=== PATIENT | male | born 1930 | race Caucasian/White ===

== ENCOUNTER 2017-10-21 12:46 | Emergency (ER) | payer OTHER ==
[~2017-10-21] VITALS: Ht 167.6 cm; Wt 81.6 kg
[~2017-10-21 12:46] MED LIST: ADVAIR 5001 DISK W/1; ALTACE2.5 MG; ANAPROX275 MG; ASA81 MG; ASPIR 8181 MG; CLARITIN10 MG; COZAAR25 MG; DILANTIN100 MG; FLONASE16 GM; LASIX20 MG; LEVOTHYROXINE50 MCG; LIPIODOL10 ML; MIRAPEX0.25 MG; OXYBUTYNIN CHLO15 MG; PLAVIX75 MG; SPIRIVA; SURFAK240 M1; TAMS0.4C; TOPROL XL25 MG; TRAZODONE HCL100 MG; VISTARIL25 MG; ZOCOR20 MG; ZOLOFT50 MG; ZYRTEC10 M3
== END 2017-10-21 16:35 | disposition home or self-care (01) ==
LOC: ER 12:46
DX: R42 Dizziness and giddiness (principal); N39.0 Urinary tract infection, site not specified

== ENCOUNTER → 2017-11-19 | Emergency (ER) | payer OTHER ==
[~2017-11-19] VITALS: Ht 175.3 cm; Wt 74.8 kg
== END | disposition home or self-care (01) ==
LOC: ER 08:48
DX: K56.41 Fecal impaction (principal)

== ENCOUNTER → 2017-12-09 | Emergency (ER) | payer OTHER ==
[~2017-12-09] VITALS: Ht 177.8 cm; Wt 72.1 kg
== END | disposition home or self-care (01) ==
LOC: ER 11:08
DX: K59.09 Other constipation (principal)

== ENCOUNTER 2017-12-13 09:19 | Emergency (ER) | payer OTHER ==
[~2017-12-13] VITALS: Ht 177.8 cm; Wt 70.8 kg
== END 2017-12-13 13:51 | disposition home or self-care (01) ==
LOC: ER 09:19
DX: S01.81XA Laceration without foreign body of other part of head, initial encounter (principal); S50.811A Abrasion of right forearm, initial encounter; S60.052A Contusion of left little finger without damage to nail, initial encounter; W18.39XA Other fall on same level, initial encounter; Y93.89 Activity, other specified; Y92.89 Other specified places as the place of occurrence of the external cause; Y99.8 Other external cause status

== ENCOUNTER 2017-12-16 11:41 | Emergency (ER) | payer OTHER ==
[~2017-12-16] VITALS: Ht 175.3 cm; Wt 71.2 kg
== END 2017-12-16 14:34 | disposition home or self-care (01) ==
LOC: ER 11:41
DX: R51 Headache (principal); S00.03XD Contusion of scalp, subsequent encounter; W18.09XD Striking against other object with subsequent fall, subsequent encounter

== ENCOUNTER 2018-05-06 22:49 | Emergency (ER) | payer OTHER ==
[~2018-05-06] VITALS: Ht 165.1 cm; Wt 56.7 kg
[2018-05-07] MEDS ORDERED: APETIGEN-PLUS1 EACH PO (05:25)
== END 2018-05-07 06:49 | disposition home or self-care (01) ==
LOC: ER 22:49
DX: F03.90 Unspecified dementia, unspecified severity, without behavioral disturbance, psychotic disturbance, mood disturbance, and anxiety (principal); R41.82 Altered mental status, unspecified; R41.0 Disorientation, unspecified

== ENCOUNTER 2018-06-02 23:32 | Inpatient (IN) | payer OTHER ==
[~2018-06-02] VITALS: Ht 170.2 cm; Wt 72.6 kg
[~2018-06-02 23:32] MED LIST changes: +APETIGEN-PLUS1 EACH PO
[2018-06-02] MEDS ORDERED: ATORVASTATIN CA10 MG (23:41)
[2018-06-02] MEDS ORDERED: MONTELUKAST SOD10 MG (23:41)
[2018-06-02] MEDS ORDERED: OMEPRAZOLE20 MG (23:41)
[2018-06-02] MEDS ORDERED: HYDROXYZINE HCL25 MG (23:42)
[2018-06-02] MEDS ORDERED: TRAZODONE HCL100 MG (23:42)
[2018-06-07] MEDS ORDERED: LEVAQUIN750 MG PO (07:40)
== END 2018-06-07 11:04 | disposition home health service (06) | DRG 193 ==
LOC: ER 23:32 → SEC-K 06-03 08:01 → MEDI 06-03 08:01 → SEC-K 06-03 16:43 → MEDI 06-03 17:17
PROC: 3E0F7GC Introduction of Other Therapeutic Substance into Respiratory Tract, Via Natural or Artificial Opening (ICD-10-PCS; principal; 2018-06-03)
PROC: BT43ZZZ Ultrasonography of Bilateral Kidneys (ICD-10-PCS; 2018-06-03)
PROC: BB24ZZZ Computerized Tomography (CT Scan) of Bilateral Lungs (ICD-10-PCS; 2018-06-04)
DX: J18.9 Pneumonia, unspecified organism (principal); A41.9 Sepsis, unspecified organism; N39.0 Urinary tract infection, site not specified; J98.11 Atelectasis; F03.90 Unspecified dementia, unspecified severity, without behavioral disturbance, psychotic disturbance, mood disturbance, and anxiety; B96.29 Other Escherichia coli [E. coli] as the cause of diseases classified elsewhere

== ENCOUNTER 2018-09-29 16:32 | Inpatient (IN) | payer OTHER ==
[~2018-09-29] VITALS: Ht 167.6 cm; Wt 72.6 kg
[~2018-09-29 16:32] MED LIST changes: +ATORVASTATIN CA10 MG; +HYDROXYZINE HCL25 MG; +LEVAQUIN750 MG PO; +MONTELUKAST SOD10 MG; +OMEPRAZOLE20 MG
[2018-09-29] MEDS ORDERED: DILANTIN100 MG (16:46)
[2018-09-29] MEDS ORDERED: ISOSORBIDE DINI30 MG (16:47)
[2018-09-29] MEDS ORDERED: MONTELUKAS 10MG (16:48)
[2018-09-29] MEDS ORDERED: ZEGERID 40 MG1 EACH (16:48)
[2018-09-29] MEDS ORDERED: [UNRECOGNIZED DRUG - MIXTURE] (16:49)
[2018-09-29] MEDS ORDERED: B COMPLEX # 11 EACH (16:49)
[2018-09-29] MEDS ORDERED: HALOPERIDOL 5 MG (16:50)
[2018-09-29] MEDS ORDERED: TRAMADOL HCL E100 M1 (16:51)
[2018-09-29] MEDS ORDERED: BENADRYL ALLERG25 MG (16:51)
[2018-09-29] MEDS ORDERED: FUROSEMIDE (16:52)
[2018-09-30] MEDS ORDERED: LASIX20 MG PO (13:46)
[2018-09-30] MEDS ORDERED: HALOPERIDOL20 MG (13:48)
[2018-10-10] MEDS ORDERED: SERTRALINE HCL100 MG PO (11:03)
[2018-10-10] MEDS ORDERED: TRAZODONE HCL50 MG PO (11:03)
[2018-10-10] MEDS ORDERED: KEPPRA500 MG PO (11:03)
[2018-10-10] MEDS ORDERED: HALOPERIDOL1 MG PO (11:03)
[2018-10-10] MEDS ORDERED: MONTELUKAST SOD10 MG PO (11:03)
[2018-10-10] MEDS ORDERED: ISOSORBIDE DINI30 MG PO (11:03)
[2018-10-10] MEDS ORDERED: B Complex CAPSULE PO (11:03)
[2018-10-10] MEDS ORDERED: DIPHENHIST25 MG PO (11:03)
[2018-10-10] MEDS ORDERED: HALOPERIDOL5 MG PO (11:03)
[2018-10-10] MEDS ORDERED: LIPITOR20 MG PO (11:03)
[2018-10-10] MEDS ORDERED: FUROSEMIDE20 MG PO (11:03)
[2018-10-10] MEDS ORDERED: INTEGRA F CAPS1 EACH PO (11:03)
[2018-10-10] MEDS ORDERED: LEVOTHYROXINE50 MCG PO (11:03)
== END 2018-10-10 11:37 | disposition home or self-care (01) | DRG 673 ==
LOC: ER 16:32 → MEDJ 09-30 10:51 → EDBD 09-30 10:51 → MEDJ 10-10 11:37
PROVIDERS: Urology; ADMIT Internal Medicine
PROC: 02HV33Z Insertion of Infusion Device into Superior Vena Cava, Percutaneous Approach (ICD-10-PCS; 2018-09-30)
PROC: B246ZZZ Ultrasonography of Right and Left Heart (ICD-10-PCS; 2018-09-30)
PROC: B216YZZ Fluoroscopy of Right and Left Heart using Other Contrast (ICD-10-PCS; 2018-10-01)
PROC: 0VPS0JZ Removal of Synthetic Substitute from Penis, Open Approach (ICD-10-PCS; principal; 2018-10-04 12:00)
PROC: 4A033R1 Measurement of Arterial Saturation, Peripheral, Percutaneous Approach (ICD-10-PCS; 2018-10-07)
PROC: BW24ZZZ Computerized Tomography (CT Scan) of Chest and Abdomen (ICD-10-PCS; 2018-10-07)
PROC: BH4CZZZ Ultrasonography of Head and Neck (ICD-10-PCS; 2018-10-07)
DX: T83.420A Displacement of implanted penile prosthesis, initial encounter (principal); A41.9 Sepsis, unspecified organism; E87.1 Hypo-osmolality and hyponatremia; N39.0 Urinary tract infection, site not specified; I13.0 Hypertensive heart and chronic kidney disease with heart failure and stage 1 through stage 4 chronic kidney disease, or unspecified chronic kidney disease; I50.1 Left ventricular failure, unspecified; J44.1 Chronic obstructive pulmonary disease with (acute) exacerbation; G40.501 Epileptic seizures related to external causes, not intractable, with status epilepticus; E78.2 Mixed hyperlipidemia; E03.8 Other specified hypothyroidism; F32.89 Other specified depressive episodes; K56.41 Fecal impaction; F03.90 Unspecified dementia, unspecified severity, without behavioral disturbance, psychotic disturbance, mood disturbance, and anxiety; B96.4 Proteus (mirabilis) (morganii) as the cause of diseases classified elsewhere; N18.2 Chronic kidney disease, stage 2 (mild); E86.0 Dehydration; J45.40 Moderate persistent asthma, uncomplicated